=== PATIENT | female | born 1995 | race Caucasian/White ===

== ENCOUNTER 2023-04-07 09:07 | Outpatient (AMB) | payer BC, SELFPAY ==
--- NOTE | 2023-04-07 10:02 | AM.OFFWIN_ITS ---
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 Reports there was not a significant amount of blood. Open to air at this time. [facility] Social History Patient Tobacco Use Status: Never used Tobacco Patient : No Review of Systems Const All systems reviewed & are unremarkable except as noted in HPI and below Physical Exam Vital Signs: Last Vital Signs Temp 97.4 F 04/07/23 10:05 Pulse 88 04/07/23 10:05 BP 126/60 04/07/23 10:05 Pulse Ox 100 04/07/23 10:05 Oxygen Delivery Method Room Air 04/07/23 10:05 BMI result Body Mass Index 26.1 Const General: cooperative and no acute distress Resp Effort & Inspection: normal respiratory effort Skin Other: Approx 2cm straight laceration on lateral palmar aspect of left hand. It is well-approximated and there is no active bleeding. There is some black ink surrounding site. Office Procedures Laceration Repair Laceration repair performed by: Mattie Workman Explained risks and benefits to parent: Yes Informed consent given: Yes Sedation: No Irrigation: saline (approx 40ml irrigation) Wound exploration: none Deep closure: No Technique: steri-strips applied Topical treatment: dry Tetanus toxoid ordered: No Patient tolerated procedure: well Com[place]: [place] [id number] Repair <2.5cm Procedure code (CPT) selection complete Assessment & Plan Assessment & Plan (1) Laceration of left hand: Code(s): S61.412A - Laceration without foreign body of left hand, initial encounter Qualifiers: Encounter type: initial encounter Foreign body presence: without foreign body Qualified Code(s): S61.412A - Laceration without foreign body of left hand, initial encounter Plan: The laceration was irrigated with NS via syringe and the ink surrounding lac was removed with gauze once moistened. Area was dried and steri-strips were applied, and hand was wrapped with gauze wrap. We discussed maintenance of steri-strips and also indications of infection including increasing warmth, redness, drainage, pain at laceration site. If these occur, she should return to the clinic for further evaluation. She verbalizes understanding and agrees to plan. Advised Tylenol/Motrin as needed for pain/discomfort. Coding Level of Care Code Est Pt Level 3 (73360) Diagnoses Laceration of left hand without foreign body, initial encounter S61.412A Encounter type: initial encounter Foreign body presence: without foreign body
[2023-04-07 10:05] VITALS: BP 126/60; PULSE 88; TEMP 36.3; O2SAT 100; BMI 26.1
== END 2023-04-07 11:03 | disposition home or self-care (01) ==
PROVIDERS: PCP Internal Medicine; Visit Provider Nurse Practitioner Family
DX: S61.412A Laceration without foreign body of left hand, initial encounter (principal)
CPT/HCPCS: 99213

== ENCOUNTER 2023-08-10 09:10 | Emergency (ER) | payer BC, SELFPAY ==
--- NOTE | ~2023-08-10 | XR_ITS ---
EXAMINATION: XR CHEST CLINICAL INFORMATION: Chest pain COMPARISON: None available. TECHNIQUE: 2 views of the chest were obtained. FINDINGS: No significant abnormality is noted involving the heart, lungs, mediastinum, bony thorax or soft tissues. XR/XR chest 2V IMPRESSION: Unremarkable examination.
--- NOTE | 2023-08-10 09:15 | ECG_ITS ---
Test Reason : chest pain Blood Pressure : / mmHG Vent. Rate : 073 BPM Atrial Rate : 073 BPM P-R Int : 196 ms QRS Dur : 086 ms QT Int : 390 ms P-R-T Axes : 071 014 002 degrees QTc Int : 429 ms Normal sinus rhythm with sinus arrhythmia Nonspecific ST and T wave abnormality Abnormal ECG No previous ECGs available Referred By: Generic ED Physician Electronically Signed By:Gene Espinoza
[2023-08-10 09:32] VITALS: BP 123/73; PULSE 65; RESP 17; TEMP 36.6; O2SAT 99; BMI 25.8
[2023-08-10 10:21] VITALS: BP 130/83; PULSE 65; RESP 14; TEMP 36.4; O2SAT 100
--- OUTSIDE RECORDS SUMMARY | 2023-08-10 10:29 | XMS_ITS | Continuity of Care Document ---
Author Organization [facility] Address [address] [facility], [address] Floor, [address] [place] [address]- Care Team Providers Care Equal Opportunity Officer Name Role Phone Chantal Snyder MD Primary Care Physician [phone] Encounter [facility] [place] Date(s): 03/23/20 - 04/22/20 [facility] [address], [address] [place] [id number] Attending Physician: Teresa Woodward Admitting Physician: AdmtrTeresa Referring Physician: Admtr, Ar8 Allergies, Adverse Reactions, Alerts Substance Reaction Severity Status ibuprofen Active aspirin Active Immunizations Given and Recorded Vaccine Date Status Refusal Reason Human Papillomavirus Vaccine 07/23/12 Given Human Papillomavirus Vaccine 1 10/05/06 Given Human Papillomavirus Vaccine 06/06/06 Given Human Papillomavirus Vaccine 04/07/06 Given Meningococcal Conjugate Vaccine 07/23/12 Given Meningococcal Poly Vacc (oldterm) 09/20/07 Given tetanus-diphtheria toxoids (Td) 2 04/07/06 Given Measles/Mumps/Rubella Virus Vaccine 3 02/28/98 Giv en Measles/Mumps/Rubella Virus Vaccine 4 03/30/95 Giv en Poliovirus Vaccine, Inactivated 5 02/28/98 Given Poliovirus Vaccine, Inactivated 6 01/28/95 Given Poliovirus Vaccine, Inactivated 7 94 Given Poliovirus Vaccine, Inactivated 8 94 Given Diphth/Pertussis, Whl Cell/Tet(oldterm) 9 02/28/98 Given Diphth/Pertussis, Whl Cell/Tet(oldterm) 10 10/28/96 Given Diphth/Pertussis, Whl Cell/Tet(oldterm) 11 01/28/95 Given Diphth/Pertussis, Whl Cell/Tet(oldterm) 12 94 Given Diphth/Pertussis, Whl Cell/Tet(oldterm) 13 94 Given Haemophilus B Conj Vaccine (oldterm) 14 10/28/96 G iven Haemophilus B Conj Vaccine (oldterm) 15 01/28/95 G iven Haemophilus B Conj Vaccine (oldterm) 16 94 G iven Haemophilus B Conj Vaccine (oldterm) 17 94 G iven Hepatitis B Vaccine (old term) 94 Given Hepatitis B Vaccine (old term) 94 Given Hepatitis B Vaccine (old term) 94 Given 1Result Comment: error 2Admin Note: TD 3Admin Note: MMR. hx varicella age 4 4Admin Note: MMR 5Admin Note: IPV/OPV 6Admin Note: IPV/OPV 7Admin Note: IPV/OPV 8Admin Note: IPV/OPV 9Admin Note: DPT 10Admin Note: DPT 11Admin Note: DPT 12Admin Note: DPT 13Admin Note: DPT 14Admin Note: HIB 15Admin Note: HIB 16Admin Note: HIB 17Admin Note: HIB Medications Multivitamins By Mouth, Daily, 0 Refills, Maintenance, 01/25/16 9:03:19 Start Date: 01/25/16 Status: Ordered Problem List Condition Effective Dates Status Health Status Inform ant Healthy adolescent(Confirmed) Active Social History Social History Type Response Smoking Status Never smoker; Tobacc o user in household: No entered on: 01/25/16 Sex Female
--- OUTSIDE RECORDS SUMMARY | 2023-08-10 10:29 | XMS_ITS | Continuity of Care Document ---
Author Organization [facility] Address [address] [place] [address]- Care Team Providers Care Corporate Quality Engineer Name Role Phone Chantal Snyder MD Primary Care Physician Encounter [facility] [place] [place] Date(s): 11/01/19 - 12/01/19 [facility] [address] [place] [id number]- [facility] Allergies, Adverse Reactions, Alerts Substance Reaction Severity [...] iven Haemophilus B Conj Vaccine (oldterm) 15 10/28/95 G iven Haemophilus B Conj Vaccine (oldterm) [...]
--- OUTSIDE RECORDS SUMMARY | 2023-08-10 10:29 | XMS_ITS | Continuity of Care Document ---
Author Organization [facility] Address [address] [facility], [address] Floor, [address] [place] [phone]- Care Team Providers Care Legal Support Specialist Name Role Phone Chantal Snyder MD Primary Care Physician [phone] Encounter [facility] [place] Date(s): 03/09/20 - 04/08/20 [facility] [address], [address], [address] [place] [id number] Allergies, Adverse Reactions, Alerts Substance Reaction Severity [...] Given Haemophilus B Conj Vaccine (oldterm) 14 7/28/97 G iven Haemophilus B Conj Vaccine (oldterm) [...]
--- OUTSIDE RECORDS SUMMARY | 2023-08-10 10:29 | XMS_ITS | Continuity of Care Document ---
Author Organization [facility] Address [address] [place] [address]- Care Team Providers Care Building Drafting Officer Name Role Phone Chantal Snyder MD Primary Care Physician Encounter [facility] Date(s): 12/12/19 - 01/11/20 [facility] [address] [place] [id number]- [facility] Allergies, Adverse Reactions, Alerts [...]
--- OUTSIDE RECORDS SUMMARY | 2023-08-10 10:29 | XMS_ITS | Continuity of Care Document ---
Author Organization [facility] ter Address [address] [place] [address]- Care Team Providers Care Distribution Associate Name Role Phone Chantal Snyder MD Primary Care Physician [phone] Encounter [facility] Date(s): 03/30/21 - 03/30/[address] [address]- Discharge Disposition: A-D/C Walkout Attending Physician: Not on Staff, Attending MD Admitting Physician: Not on Staff, Admitting MD Referring Physician: Not on Staff, Referring MD Allergies, Adverse Reactions, Alerts Substance Reaction Severity [...] 16Admin Note: HIB 17Admin Note: HIB Medications acetaminophen 325 mg oral tablet 650 mg, By Mouth, Every 4 hours, PRN, (1-3), may give 325mg per patient preference and re-dose [id number] within 4 hours, if needed. Patient should only receive a total of 650mg of Acetaminophen every 4 hours., Refills 0, Maintenance, Pain , Mild, 0... Start Date: 05/17/20 Status: Ordered Docusate Sodium Capsule 100 mg, 1, capsule, By Mouth, 2 times a day, Refills 0, Maintenance, 05/17/20 8:13:00 EST, Partial fill upon patient request if the prescription is for a schedule II opioid drug. Start Date: 05/17/20 Status: Ordered Multivitamins By Mouth, Daily, 0 Refills, Maintenance, 01/25/16 9:03:19 Start Date: 01/25/16 Status: Ordered Problem List Condition Effective Dates Status Health Status Inform ant Healthy adolescent(Confirmed) Active Migraines(Confirmed) Active Results Radiology Reports * Exam Date Time Procedure Performing Provider Status 03/30/21 7:51 AM Chest 2 Views Frontal and Lat Amy Randolph; Auth (Verified) Notes: (Chest 2 Views Frontal and Lat) Reason For Exam: Chest Pain;Other: RESULT: Chest 2 Views Frontal and Lat Chest 2 Views Frontal and Lat Hx of Present Illness: Nausea, lightheadedness (not vertigo), since [place]. Also reports exertional, non-radiating, intermittent CP.; Reason: Other:; Chest Pain; Clinical Question(s): Other: COMPARISON: 02/28/2017 FINDINGS: LINES AND TUBES: None. LUNGS AND PLEURA: Lungs are grossly clear without focal atelectasis or consolidation. No pulmonary vascular congestion, pleural effusion or pneumothorax is identified. HEART, MEDIASTINUM AND CHEMO: Heart is normal in size. Normal upper mediastinal and hilar contour. BONES AND SOFT TISSUES: Normal. IMPRESSION: Normal chest. WSN: [id number] Ordering Physician: Caesar Engle Dictated By: Lloyd Starkey MD Dictated Date/Time: 03/30/21 7:59 am Reviewed By: Lloyd Starkey MD Signed By: Lloyd Starkey MD Signed Date/Time: 03/30/21 7:59 am Transcribed By: MICHELLE Transcribed Date/Time: 03/30/21 7:55 am Vital Signs Most recent to oldest [Reference Range]: 1 2 3 Oxygen Saturation [94-100 %] 100 % (03/30/21 12:43 PM) 100 % (03/30/21 12:30 PM) 100 % (03/30/21 9:29 AM) Pulse Rate [55-90 bpm] 60 bpm (03/30/21 12:43 PM) 60 bpm (03/30/21 12:30 PM) 74 bpm (03/30/21 9:29 AM) Blood Pressure [90-138/55-84 mm Hg] 122/70mm Hg (03/30/21 12:43 PM) 122/70mm Hg (03/30/21 12:30 PM) 111/71mm Hg (03/30/21 9:29 AM) Respiratory Rate [16-30 br/min] 16 br/min (03/30/21 12:43 PM) 16 br/min (03/30/21 12:30 PM) 16 br/min (03/30/21 9:29 AM) Temperature [96.8-100.4 DegF] 98.1 DegF (03/30/21 12:43 PM) 98.1 DegF (03/30/21 12:30 PM) 98.3 DegF (03/30/21 9:29 AM) Mode of Delivery (Oxygen) Room air (03/30/21 12:43 PM) Room air (03/30/21 12:30 PM) Room air (03/30/21 9:29 AM) Blood pressure sites Arm, right (03/30/21 12:43 PM) Arm, right (03/30/21 12:30 PM) Arm, right (03/30/21 9:29 AM) Temperature Route Oral (03/30/21 12:43 PM) Oral (03/30/21 12:30 PM) Oral (03/30/21 9:29 AM) Social History Social History Type Response Smoking Status Never smoker; Tobacc o user in household: No entered on: 01/25/16 Sex Female
--- OUTSIDE RECORDS SUMMARY | 2023-08-10 10:29 | XMS_ITS | Continuity of Care Document ---
Author Organization [facility] ter Address [address] [place] [address]- Care Team Providers Care Mill Operator Helper Name Role Phone Chantal Snyder MD Primary Care Physician Encounter [facility] Date(s): 05/14/20 - 06/13/[address] [address] Attending Physician: Stevo Fowler MD Referring Physician: Kellie Luevano CNM Allergies, Adverse Reactions, Alerts Substance Reaction Severity [...] give 325mg per patient preference and re-dose [id number] within 4 hours, if needed. Patient should [...] Inform ant Healthy adolescent(Confirmed) Active Migraines(Confirmed) Active Social History Social History Type Response Smoking Status Never smoker; Tobacc o user in household: No entered on: 01/25/16 Sex Female
--- OUTSIDE RECORDS SUMMARY | 2023-08-10 10:29 | XMS_ITS | Continuity of Care Document ---
Author Organization [facility] Address [address] [facility], [address] Floor, [address] [place] [phone]- Care Team Providers Care Maintenance Services Dispatcher Name Role Phone Chantal Snyder MD Primary Care Physician [phone] Encounter [facility] [place] Date(s): 03/04/20 - 04/03/20 [facility] [address], [address], [address] [place] [id number] Allergies, Adverse Reactions, Alerts Substance Reaction [...]
--- OUTSIDE RECORDS SUMMARY | 2023-08-10 10:29 | XMS_ITS | Continuity of Care Document ---
Author Organization [facility] ter Address [address] [place] [address]- Care Team Providers Care Skid Road Worker Name Role Phone Chantal Snyder MD Primary Care Physician Encounter [facility] [place] Date(s): 11/08/19 - 11/08/[address] [address] [facility] Discharge Disposition: A-D/C Home Attending Physician: Chun PARKER, Angelic Maldonado Admitting Physician: Angelic Mccollmu MD Referring Physician: Not on Staff, Referring [...] Health Status Inform ant Healthy adolescent(Confirmed) Active Vital Signs Most recent to oldest [Reference Range]: 1 2 3 Oxygen Saturation [94-100 %] 98 % (11/08/19 7:29 PM) 100 % (11/08/19 5:25 PM) 100 % (11/08/19 3:32 PM) Pulse Rate [55-90 bpm] 74 bpm (11/08/19 7:29 PM) 111 bpm *H* (11/08/19 5:25 PM) 77 bpm (11/08/19 3:32 PM) Blood Pressure [90-138/55-84 mm Hg] 124/79mm Hg (11/08/19 7:29 PM) 114/68mm Hg (11/08/19 5:25 PM) 124/75mm Hg (11/08/19 3:32 PM) Respiratory Rate [16-30 br/min] 18 br/min (11/08/19 7:29 PM) 18 br/min (11/08/19 5:25 PM) 18 br/min (11/08/19 3:32 PM) Temperature [96.8-100.4 DegF] 98.8 DegF (11/08/19 7:29 PM) 98.8 DegF (11/08/19 3:32 PM) Mode of Delivery (Oxygen) Room air (11/08/19 7:29 PM) Room air (11/08/19 5:25 PM) Room air (11/08/19 3:32 PM) Blood pressure sites Arm, right (11/08/19 7:29 PM) Arm, right (11/08/19 5:25 PM) Arm, right (11/08/19 3:32 PM) Temperature Route Oral (11/08/19 7:29 PM) Oral (11/08/19 3:32 PM) Social History Social History Type Response Smoking Status Never smoker; Tobacc o user in household: No entered on: 01/25/16 Sex Female
--- OUTSIDE RECORDS SUMMARY | 2023-08-10 10:29 | XMS_ITS | Continuity of Care Document ---
Author Organization [facility] ter Address [address] [place] [address]- Care Team Providers Care Concession Worker Name Role Phone Chantal Snyder MD Primary Care Physician Encounter [facility] Date(s): 05/15/20 - 05/17/[address] [id number] Discharge Disposition: A-D/C Home Attending Physician: Stevo Fowler MD Admitting Physician: Stevo Fowler MD Referring Physician: Stevo Fowler MD Allergies, Adverse Reactions, Alerts Substance Reaction [...] give 325mg per patient preference and re-dose [id number] within 4 hours, if needed. Patient should only receive a total of 650mg of Acetaminophen every 4 hours., Refills 0, Maintenance, Pain , Mild, 0... Start Date: 05/17/20 Status: Ordered Acetaminophen Tablet 650 mg, Tablet, By Mouth, Every 4 hours, PRN for Pain , Mild, (1-3), may give 325mg per patient preference and re-dose with 325mg within 4 hours, if needed. Patient should only receive a total of 650mg of Acetaminophen every 4 hours., Routine, 05/15... Start Date: 05/15/20 Stop Date: 05/17/20 Status: Discontinued Docusate Sodium Capsule 100 mg, 1, capsule, [...] Inform ant Healthy adolescent(Confirmed) Active Migraines(Confirmed) Active Procedures Procedure Date Related Diagnosis Body Site Status Appendectomy Completed Hawi tooth Completed Vital Signs Most recent to oldest [Reference Range]: 1 2 3 Height 168 cm (05/17/20 10:27 AM) 168 cm (05/17/20 12:19 AM) 168 cm (05/16/20 2:51 PM) Weight 83.6 kg (05/15/20 8:49 PM) 83.6 kg (05/15/20 6:54 PM) Oxygen Saturation [94-100 %] 96 % (05/17/20 12:19 AM) 95 % (05/16/20 5:37 AM) 100 % (05/16/20 1:30 AM) Pulse Rate [55-90 bpm] 78 bpm (05/17/20 10:27 AM) 76 bpm (05/17/20 12:19 AM) 80 bpm (05/16/20 2:51 PM) Body Mass Index [18.5-24.99] 29.62 *H* (05/15/20 8:49 PM) Blood Pressure [90-138/55-84 mm Hg] 119/76mm Hg (05/17/20 10:27 AM) 125/79mm Hg (05/17/20 12:19 AM) 123/77mm Hg (05/16/20 2:51 PM) Respiratory Rate [16-30 br/min] 17 br/min (05/17/20 10:27 AM) 18 br/min (05/17/20 1:39 AM) 18 br/min (05/17/20 12:19 AM) Temperature [96.8-100.4 DegF] 98.1 DegF (05/17/20 10:27 AM) 98.3 DegF (05/17/20 12:19 AM) 98.5 DegF (05/16/20 2:51 PM) Mode of Delivery (Oxygen) Room air (05/17/20 12:19 AM) Room air (05/16/20 5:37 AM) Room air (05/16/20 1:30 AM) Blood pressure sites Arm, left (05/17/20 10:27 AM) Arm, right (05/16/20 2:51 PM) Arm, right (05/16/20 8:58 AM) Temperature Route Oral (05/17/20 10:27 AM) Oral (05/17/20 12:19 AM) Oral (05/16/20 2:51 PM) Dry Weight 83.6 kg (05/15/20 8:49 PM) 83.6 kg (05/15/20 6:54 PM) Weight Obtained Via Standing scale (05/15/20 6:54 PM) Dry Weight Obtained Via Standing scale (05/15/20 6:54 PM) Social History Social History Type Response Smoking Status Never smoker; Tobacc o user in household: No entered on: 01/25/16 Sex Female
--- NOTE | 2023-08-10 10:40 | PC.NURSE ---
Pt presents to ED from home, reports chest pain started yesterday that started while at work. Describes as pressure in center of chest radiating to left arm, 5/10 at this time. Pt reports some nausea at this time. Denies any vomiting, diarrhea, fevers, cough, SOB. Denies this ever happening before. Alert and oriented, breathing even and unlabored, skin warm and dry. Pt placed on administration clerk, NSR. VSS.
--- NOTE | 2023-08-10 10:52 | ED.CHESTPAIN ---
HPI - Chest Pain General Chief Complaint: Chest Pain Stated Complaint: Chest pain traveling to shoulders Time Seen by Provider: 08/10/23 10:28 Source: patient Mode of arrival: ambulatory Limitations: no limitations History of Present Illness HPI narrative: Patient is a 28-year-old female with no past medical history presenting to the emergency department with complaint of chest pain since waking yesterday. States that chest pain has been constant since onset, waxing and waning in intensity. States pain worsened when she became ?animated? at work yesterday. States pain has begun to radiate to left arm and to shoulders. Reports that father has history of CHF and when she told him her symptoms he advised her to come to the emergency department. Also complains of feeling generalized fatigue, headaches, lightheadedness this week. Denies any abdominal pain, nausea, vomiting, diarrhea, constipation. Denies cough, fevers. MD complaint: chest pain Onset (ago): day(s) Timing of current episode: constant Onset: awoke with symptoms Pain location: substernal Pain radiation: left arm Severity: moderate Quality: aching Exacerbating factors: stress Treatment prior to arrival: none Related Data Home Medications ?Medication ?Instructions ?Recorded ?Confirmed No Known Home Meds 04/07/23 04/07/23 Allergies Allergy/AdvReac Type Severity Reaction Status Date / Time aspirin Allergy Unknown Unknown Verified 08/10/23 09:34 ibuprofen Allergy Unknown Unknown Verified 08/10/23 09:34 NSAIDS (Non-Steroidal Allergy Swelling Verified 08/10/23 09:34 Anti-Inflamma Review of Systems Review of Systems: As per HPI. Yes all other systems are reviewed and are negative Constitutional: Constitutional: Reports as per HPI [facility] Social History Social History Patient Tobacco Use Status: Never used Tobacco Smoked in Last 30 Days: No Use of substances other than those prescribed or required for medical reasons: No Advance Directives: No Advance Directives Information Provided: Yes Physical Exam Vital Signs: Vital Signs: Last Vital Signs Temp 98.4 F 08/10/23 14:22 Pulse 60 08/10/23 14:22 Resp 16 08/10/23 14:22 BP 116/71 08/10/23 14:22 Pulse Ox 99 08/10/23 14:22 O2 Del Method Room Air 08/10/23 14:22 BMI result Body Mass Index 25.8 Vital signs have been reviewed and appear to be correct. Blood pressure normal. Heart rate normal. Respiratory rate normal. Temperature normal. Oxygen saturation normal. Const: General: cooperative, healthy appearing and no acute distress Orientation/consciousness: oriented to person, oriented to place, oriented to time and patient oriented x3 Limitations: no limitations HEENT: Head: Yes normocephalic and Yes atraumatic Ears: external ears normal General nose exam: Normal external nose present Face and sinus: Yes face symmetric Mouth: oropharynx normal and moist mucous membranes Throat: Yes uvula midline Eyes: Pupils: Equal, round and reactive pupils present Neck: Neck: Yes normal visual inspection and Yes supple Chest: Chest palpation & inspection: normal inspection of the chest and normal palpation of entire chest wall Resp: Effort & Inspection: normal respiratory effort and able to speak in complete sentences Auscultation: clear to auscultation bilaterally Cardio: Rate: regular rate Rhythm: regular rhythm Heart sounds: S1 normal heart sound present and S2 normal heart sound present GI: Palpation (GI): Soft to palpation and nontender Auscultation: normoactive bowel sounds : General: Yes no CVA tenderness Back/Spine/Pelvis: Back: no CVA tenderness Skin: General skin exam: elasticity normal and turgor normal Neuro: General: oriented to person, oriented to place, oriented to time, patient oriented x3, moves all extremities, no focal motor deficits and CN's II-XI intact bilaterally Cranial nerves: Yes Equal, round and reactive pupils present Cognition (Neuro): normal cognition Extrem: General: Yes full ROM, Yes no pedal edema and Yes no calf tenderness Psych: Mental Status: mental status grossly normal Affect: normal affect Thought process: Normal thought process present Medical Decision Making Medical Decision Making MDM Narrative: Patient is a 28-year-old female with no past medical history presenting to the emergency department with complaint of chest pain since waking yesterday. On exam patient is awake, A+Ox3, VS WNL, afebrile, normal neurological exam without focal deficits, physical exam findings as above. Given reported symptoms and physical exam findings, initial differential includes viral illness, covid, flu, rsv, anemia, electrolyte abnormality, dehydration, . Less likely ACS but will obtain troponin. Unlikely pneumonia, pneumothorax. Labs unremarkable, negative troponin, no anemia, no electrolyte abnormalities, negative d-dimer, negative HCG. Viral swabs negative. EKG shows normal sinus rhythm with sinus arrhythmia. X-ray notable for no acute abnormalities. My interpretation is in agreement with the radiologist's interpretation. Results discussed with patient and all questions answered. Instructed patient to follow-up with her primary care provider. Return precautions discussed at bedside. Patient verbalized understanding of and agreement with plan. Differential Diagnosis Differential Diagnoses: The differential diagnosis associated with the presentation includes As per [facility] Admission/Observation Consideration of admission/observation: Escalation of care including admission/observation considered Patient would have been admitted to the hospital had their work up had any findings where hospital admission was appropriate and their clinical presentation warranted hospital admission. Lab Data [facility] Lab Attestation statement: I reviewed the patient's lab results. as per [facility] 08/10/23 11:17 08/10/23 11:17 Labs: Lab Results 08/10/23 08/10/23 Range/Units 11:16 11:17 WBC 4.8 (4.8-10.8) X10*3/uL RBC 4.63 (4.20-5.50) X10*6/uL Hgb 13.9 (12.0-16.0) g/dl Hct 41.8 (37.0-47.0) % MCV 90.3 (80.0-98.0) fL MCH 30.0 (27.0-33.0) pg MCHC 33.3 (31.0-35.0) g/dl RDW 12.2 (11.0-16.0) % Plt Count 206 (160-400) X10*3/uL MPV 11.5 (9.4-12.3) fL Immature Gran % (Auto) 0.2 (0.0-0.4) % Neut % (Auto) 55.3 (45-73) % Lymph % (Auto) 37.2 (20-40) % [place] % (Auto) 5.2 (2-11) % Eos % (Auto) 1.7 (0-4) % Baso % (Auto) 0.4 (0-2) % Lymph # (Auto) 1.8 (1.2-4.9) X10*3/uL [place] # (Auto) 0.3 (0.1-1.2) X10*3/uL Eos # (Auto) 0.1 (0.0-0.4) X10*3/uL Baso # (Auto) 0.0 (0.0-0.2) X10*3/uL Abs Immat Gran (auto) 0.01 (0.00-0.03) X10*3/uL Absolute Neuts (auto) 2.7 (2.0-8.3) x10*3/uL Absolute Nucleated RBC 0.000 (0.0-0.012) X10*3/uL Nucleated RBC % (auto) 0.0 (0.0-0.2) /100WBC PT 12.1 (11.1-13.3) SEC INR 1.0 (0.9-1.1) D-Dimer High Sensitivty < 150 NG/ML Sodium 142 (135-145) mmol/L Potassium 3.6 (3.3-5.1) mmol/L Chloride 110 H (96-108) mmol/L Carbon Dioxide 22 (22-29) mmol/L Anion Gap 14 (12-20) BUN 10 (9-16) mg/dL Creatinine 0.69 (0.5-1.4) mg/dL Estim Creat Clear Calc 122.7 Estimated GFR > 60 Random Glucose 89 (60-115) mg/dL Calcium 9.8 (8.4-10.2) mg/dL Troponin I High Sens < 2.7 (<3.5-17.0) ng/L Beta HCG, Quant < 2 mIU/mL Influenza Type A (PCR) NEGATIVE (Negative) Influenza Type B (PCR) NEGATIVE (Negative) RSV RNA Qual (PCR) NEGATIVE (Negative) SARS-CoV-2 RNA (RT-PCR) NEGATIVE (Negative) Independent Interpretation I performed an independent interpretation of an: EKG (normal sinus rhythm with sinus arrhythmia, rate 73bpm, normal NE interval and QTc) and Plain X-Ray Interpretation: CXR is without evidence of cardiomegaly, pneumonia, pneumothorax Radiology Impression Discussion of test interpretation with radiology: I have reviewed the radiologist's reading. Radiologist Impression: XR/XR chest 2V IMPRESSION: Unremarkable examination. External Record Review External record reviewed: Inpatient record, Office record and Outpatient record Discharge Plan Discharge Clinical Impression: Atypical chest pain Patient Disposition: Home, Self-Care Instructions: Chest Pain (DC), Noncardiac Chest Pain (ED), Chest Wall Pain (ED) Additional Instructions: You were evaluated in the emergency department today for chest pain. Your evaluation has shown no signs of medical conditions requiring emergent intervention at this time, however we recommend that you follow-up with your primary care physician for further testing as an outpatient if your symptoms persist. Return to the emergency department if you experience worsening or uncontrolled chest pain, shortness of breath, lightheadedness, feeling faint, loss of consciousness, nausea, vomiting, or any other concerning symptoms. Prescriptions: No Action No Known Home Meds Stand Alone Forms: Work/School Release Print Language: Ugandan
[2023-08-10 11:23] LABS: MANUAL DIFF FLAG NO
[2023-08-10 11:25] LABS: Basophils Percent Auto 0.4 % (0-2); Eosinophils Absolute Auto 0.1 X10*3/uL (0.0-0.4); Eosinophils Percent Auto 1.7 % (0-4); Hematocrit 41.8 % (37.0-47.0); Hemoglobin 13.9 g/dl (12.0-16.0); Imm Gran Abs Auto 0.01 X10*3/uL (0.00-0.03); Imm Gran Pct Auto 0.2 % (0.0-0.4); Lymphocytes Absolute Auto 1.8 X10*3/uL (1.2-4.9); Lymphocytes Percent Auto 37.2 % (20-40); Mean Corpuscular HGB Conc 33.3 g/dl (31.0-35.0); Mean Corpuscular Volume 90.3 fL (80.0-98.0); Mean Platelet Volume 11.5 fL (9.4-12.3); Monocytes Absolute Auto 0.3 X10*3/uL (0.1-1.2); Monocytes Percent Auto 5.2 % (2-11); Neutrophils Absolute Auto 2.7 x10*3/uL (2.0-8.3); Neutrophils Percent Auto 55.3 % (45-73); Platelet Count 206 X10*3/uL (160-400); Red Blood Count 4.63 X10*6/uL (4.20-5.50); Red Cell Distribution Width 12.2 % (11.0-16.0); White Blood Count 4.8 X10*3/uL (4.8-10.8)
[2023-08-10 11:37] LABS: Prothrombin Time 12.1 SEC (11.1-13.3)
[2023-08-10 11:42] LABS: D Dimer High Sensitivity < 150 NG/ML
[2023-08-10 11:43] LABS: Anion Gap 14 (12-20); Blood Urea Nitrogen 10 mg/dL (9-16); Calcium 9.8 mg/dL (8.4-10.2); Carbon Dioxide 22 mmol/L (22-29); Chloride 110 mmol/L (96-108); Creatinine Clr Calc Pharmacy 122.7; Estimated Glomerular Filt Rate > 60; Glucose Random 89 mg/dL (60-115); Potassium 3.6 mmol/L (3.3-5.1); Sodium 142 mmol/L (135-145)
[2023-08-10 11:47] LABS: HCG Quantitative < 2 mIU/mL; Troponin-I High Sensitivity < 2.7 ng/L (<3.5-17.0)
[2023-08-10 12:47] LABS: Influenza A PCR NEGATIVE (Negative); Influenza B PCR NEGATIVE (Negative); Resp Syncy Virus RNA Qual PCR NEGATIVE (Negative); SARS COV2 PCR INHOUSE NEGATIVE (Negative)
[2023-08-10 14:22] VITALS: BP 116/71; PULSE 60; RESP 16; TEMP 36.9; O2SAT 99
[2023-08-10 14:54] VITALS: BP 116/71; PULSE 60; RESP 16; TEMP 36.9; O2SAT 99
== END 2023-08-10 14:55 | disposition home or self-care (01) ==
PROVIDERS: Registered Nurse Emergency; Emergency Provider Emergency Medicine; PCP Internal Medicine
DX: R07.89 Other chest pain (principal); M79.602 Pain in left arm; R51.9 Headache, unspecified; R42 Dizziness and giddiness; R10.2 Pelvic and perineal pain; Z03.818 Encounter for observation for suspected exposure to other biological agents ruled out; Z79.899 Other long term (current) drug therapy
CPT/HCPCS: 0241U; 36415; 71046; 80048; 84484; 84702; 85025; 85379; 85610; 93005; 99283; 99285

== ENCOUNTER → 2023-08-10 09:15 | Outpatient (BNV) | payer BC, SELFPAY | PROVIDERS: Emergency Provider Emergency Medicine; PCP Internal Medicine; Visit Provider Internal Medicine Cardiovascular Disease | DX: R07.9 Chest pain, unspecified (principal) | CPT/HCPCS: 93010 ==

== ENCOUNTER 2023-10-24 05:39 | Emergency (ER) | payer BC, SELFPAY ==
[2023-10-24 05:41] VITALS: BP 123/82; PULSE 66; RESP 16; TEMP 36.6; O2SAT 99; BMI 25.8
[2023-10-24 05:57] LABS: Basophils Percent Auto 0.2 % (0-2); Eosinophils Absolute Auto 0.9 X10*3/uL (0.0-0.4); Eosinophils Percent Auto 9.6 % (0-4); Hematocrit 40.4 % (37.0-47.0); Hemoglobin 13.8 g/dl (12.0-16.0); Imm Gran Abs Auto 0.03 X10*3/uL (0.00-0.03); Imm Gran Pct Auto 0.3 % (0.0-0.4); Lymphocytes Absolute Auto 3.1 X10*3/uL (1.2-4.9); Lymphocytes Percent Auto 32.9 % (20-40); MANUAL DIFF FLAG NO; Mean Corpuscular HGB Conc 34.2 g/dl (31.0-35.0); Mean Corpuscular Hemoglobin 30.8 pg (27.0-33.0); Mean Corpuscular Volume 90.2 fL (80.0-98.0); Mean Platelet Volume 11.2 fL (9.4-12.3); Monocytes Absolute Auto 0.6 X10*3/uL (0.1-1.2); Monocytes Percent Auto 6.5 % (2-11); Neutrophils Absolute Auto 4.8 x10*3/uL (2.0-8.3); Neutrophils Percent Auto 50.5 % (45-73); Platelet Count 223 X10*3/uL (160-400); Red Blood Count 4.48 X10*6/uL (4.20-5.50); Red Cell Distribution Width 11.9 % (11.0-16.0); White Blood Count 9.5 X10*3/uL (4.8-10.8)
[2023-10-24 06:17] LABS: Alanine Aminotransferase 12 U/L (0-31); Albumin Level 4.6 g/dL (3.5-5.0); Alkaline Phosphatase 62 U/L (39-117); Anion Gap 15 (12-20); Aspartate Amino Transferase 12 U/L (5-31); Bilirubin Total 1.3 mg/dL (0.0-1.0); Blood Urea Nitrogen 10 mg/dL (9-16); Calcium 9.7 mg/dL (8.4-10.2); Carbon Dioxide 18 mmol/L (22-29); Chloride 108 mmol/L (96-108); Creatinine Clr Calc Pharmacy 114.4; Estimated Glomerular Filt Rate > 60; Glucose Random 106 mg/dL (60-115); Lipase 42 U/L (8-78); Potassium 3.8 mmol/L (3.3-5.1); Sodium 137 mmol/L (135-145); Total Protein 7.7 g/dL (6.5-8.0)
[2023-10-24 06:19] LABS: HCG Quantitative < 2 mIU/mL
--- NOTE | 2023-10-24 06:45 | ED.GENADULT ---
HPI - General Adult General Chief complaint: Abdominal Pain Stated complaint: Abd pain Time Seen by Provider: 10/24/23 06:41 Source: patient Mode of arrival: ambulatory Limitations: no limitations History of Present Illness ED Provider: Davina Yates PA-C HPI narrative: This is a 28 year old female with history of gastritis presenting with epigastric pain, nausea, and burping. She reports nausea without vomiting for the past couple of days, and upper abdominal pain x 1 week. Denies sick contacts, travel, recent antibiotic use, alcohol use, or NSAID use. She has tried pepto bismol with no relief of symptpms. Denies fevers, chills, chest pain, sob, headaches, visual changes. Related Data Previous Rx's ?Medication ?Instructions ?Recorded aluminum-mag hydroxide-simethicone 5 ml PO 5XD PRN dyspepsia #355 mL 10/24/23 200 mg-200 mg-20 mg/5 mL oral susp (Maalox Advanced) pantoprazole 40 mg tablet,delayed 40 mg PO DAILY 30 days #30 tabs 10/24/23 release (Protonix) Allergies Allergy/AdvReac Type Severity Reaction Status Date / Time aspirin Allergy Unknown Unknown Verified 10/24/23 05:44 ibuprofen Allergy Unknown Unknown Verified 10/24/23 05:44 NSAIDS (Non-Steroidal Allergy Swelling Verified 10/24/23 05:44 Anti-Inflamma Review of Systems Review of Systems: Yes all other systems are reviewed and are negative [facility] Past Medical History Attestation statement: The following information was validated with the patient. Source: old records reviewed and nursing notes reviewed Social History Social History Patient Tobacco Use Status: Never used Tobacco Smoked in Last 30 Days: No Use of substances other than those prescribed or required for medical reasons: No Advance Directives: No Advance Directives Information Provided: Yes Physical Exam ED Vital Signs: Vital Signs - 24 hr 10/24/23 05:41 10/24/23 08:26 Temperature 98 F 98.0 F Pulse Rate 66 57 Respiratory Rate 16 14 Blood Pressure 123/82 110/65 Pulse Oximetry 99 100 Oxygen Delivery Method Room Air Room Air BMI result Body Mass Index 25.8 vss Appearance: Alert.? Oriented X3.? No acute distress.? Head: Normocephalic, atraumatic, no step-offs or deformities Eyes: Pupils equal, round and reactive to light.? Neck: Normal inspection.? Neck supple.? CVS: Normal heart rate and rhythm.? Pulses normal.? Respiratory: No respiratory distress.? Breath sounds normal.? Abdomen: Soft. + mild ttp in epigastric region. Palpation worsens nausea. No peritoneal signs. Skin: Skin warm and dry.? Normal skin color.? Normal skin turgor.? Extremities: No lower extremity edema.? No calf ttp. 5/5 strength to bilateral upper and lower extremities Neuro: Oriented X 3.? No motor deficit.? No sensory deficit. CN 2-12 intact Course Reevaluation(s) Reevaluation #1: CBC unremarkable. Chemistry no acute findings needing intervention. Beta hCG negative. Total bilirubin elevated at baseline today 1.3 this is better than her baseline. UA without infection. Pain much improved after Maalox and Pepcid. Plan at this time is to discharge patient home with Pepcid, Maalox and GI follow-up. Patient tolerating p.o. agrees with this plan. Will call to schedule an appointment. Educated patient on diagnosis and treatment plan, answered all question, patient verbalizes understanding. At this time patient will be discharged home, advised to return with new or worsening symptoms. Educated on worrisome signs and symptoms and when to return. At this time I feel comfortable discharge home. Time: 09:07 Medications Administered Discontinued Medications Generic Name Dose Route Start Last Admin Trade Name Freq PRN Reason Stop Dose Admin Al Hydroxide/Mg Hydroxide 15 ml 10/24/23 07:01 10/24/23 07:23 Magnesium Hydrox/Alum Hydrox 30 Ml Oral.Susp PO 10/24/23 07:02 0.5 ml ONCE ONE Administration Famotidine 20 mg 10/24/23 07:55 10/24/23 08:16 Famotidine 20 Mg Tablet PO 10/24/23 07:56 20 mg ONCE ONE Administration Medical Decision Making Medical Decision Making MDM Narrative: 28 year old female with history of gastritis presenting with nausea, upper abdominal pain, and burping x 1 week. PE + ttp upper epigastric region. No peritoneal signs Hx and PE concerning for gastritis vs GERD vs gastroenteritis. Unlikely appendicitis, cholecystitis, pancreatitis, perforated gastric ulcer, peritonitis. Plan - labs, urine Differential Diagnosis Differential Diagnoses: The differential diagnosis associated with the presentation includes Hx and PE concerning for gastritis vs GERD vs gastroenteritis. Unlikely appendicitis, cholecystitis, pancreatitis, perforated gastric ulcer, peritonitis. Admission/Observation Consideration of admission/observation: Escalation of care including admission/observation considered Lab Data 10/24/23 05:51 10/24/23 05:51 Labs: Lab Results 10/24/23 10/24/23 Range/Units 05:51 08:29 WBC 9.5 (4.8-10.8) X10*3/uL RBC 4.48 (4.20-5.50) X10*6/uL Hgb 13.8 (12.0-16.0) g/dl Hct 40.4 (37.0-47.0) % MCV 90.2 (80.0-98.0) fL MCH 30.8 (27.0-33.0) pg MCHC 34.2 (31.0-35.0) g/dl RDW 11.9 (11.0-16.0) % Plt Count 223 (160-400) X10*3/uL MPV 11.2 (9.4-12.3) fL Immature Gran % (Auto) 0.3 (0.0-0.4) % Neut % (Auto) 50.5 (45-73) % Lymph % (Auto) 32.9 (20-40) % [place] % (Auto) 6.5 (2-11) % Eos % (Auto) 9.6 H (0-4) % Baso % (Auto) 0.2 (0-2) % Lymph # (Auto) 3.1 (1.2-4.9) X10*3/uL [place] # (Auto) 0.6 (0.1-1.2) X10*3/uL Eos # (Auto) 0.9 H (0.0-0.4) X10*3/uL Baso # (Auto) 0.0 (0.0-0.2) X10*3/uL Abs Immat Gran (auto) 0.03 (0.00-0.03) X10*3/uL Absolute Neuts (auto) 4.8 (2.0-8.3) x10*3/uL Absolute Nucleated RBC 0.000 (0.0-0.012) X10*3/uL Nucleated RBC % (auto) 0.0 (0.0-0.2) /100WBC Sodium 137 (135-145) mmol/L Potassium 3.8 (3.3-5.1) mmol/L Chloride 108 (96-108) mmol/L Carbon Dioxide 18 L (22-29) mmol/L Anion Gap 15 (12-20) BUN 10 (9-16) mg/dL Creatinine 0.74 (0.5-1.4) mg/dL Estim Creat Clear Calc 114.4 Estimated GFR > 60 Random Glucose 106 (60-115) mg/dL Calcium 9.7 (8.4-10.2) mg/dL Total Bilirubin 1.3 H (0.0-1.0) mg/dL AST 12 (5-31) U/L ALT 12 (0-31) U/L Alkaline Phosphatase 62 (39-117) U/L Total Protein 7.7 (6.5-8.0) g/dL Albumin 4.6 (3.5-5.0) g/dL Lipase 42 (8-78) U/L Beta HCG, Quant < 2 mIU/mL Urine Color Yellow Urine Appearance Cloudy Urine pH 5.0 (5.0-9.0) Ur Specific [place] 1.025 (1.005-1.025) Urine Protein Negative (Neg-Trace) mg/dL Urine Glucose (UA) Negative (Negative) mg/dL Urine Ketones Negative (Negative) mg/dL Urine Blood Negative (Negative) Urine Nitrite Negative (Negative) Ur Leukocyte Esterase Negative (Negative) Critical Care Time Critical Care Time Critical Care Time: No Discharge Plan Discharge Clinical Impression: Gastroesophageal reflux disease, Abdominal pain, epigastric Patient Disposition: Home, Self-Care Instructions: Diet for Stomach Ulcers and Gastritis (ED), Gastroesophageal Reflux Disease (ED), Abdominal Pain (ED) Additional Instructions: Take your medications as prescribed. If you were prescribed antibiotics today, it is important that you take your medication to their entirety, do not skip any doses, do not finish them early. Follow-up with your primary care provider this week. Return to the emergency department with new or worsening symptoms. Such as fevers, chills, chest pain, shortness of breath, nausea, vomiting, dizziness, headache, vision changes, lethargy In case of emergency call 911 Follow-up with GI Prescriptions: New alum-mag hydroxide-simeth [Maalox Advanced] 200-200-20 mg/5 mL suspension 5 ml PO 5XD PRN (Reason: dyspepsia) Qty: 355 0RF Rx Instructions: administer between meals and at bedtime pantoprazole [Protonix] 40 mg tablet,delayed release (DR/EC) 40 mg PO DAILY 30 Days Qty: 30 0RF Referrals: [facility]Provider Group] - 1 day Chantal Snyder MD [Primary Care Provider] - 2 days Stand Alone Forms: Work/School Release Print Language: Salvadorean
[2023-10-24] MEDS: Magnesium Hydrox/Alum Hydrox 30 ML ORAL.SUSP 15 ML PO (07:23)
[2023-10-24] MEDS: Famotidine 20 MG TABLET PO (08:16)
[2023-10-24 08:26] VITALS: BP 110/65; PULSE 57; RESP 14; TEMP 36.7; O2SAT 100
[2023-10-24 08:34] LABS: Appearance Urine Cloudy; Color Urine Yellow; Glucose Urine UA Negative (Negative); Leukocyte Esterase Urine Negative (Negative); Nitrite Urine Negative (Negative); Specific Gravity - Urine 1.025 (1.005-1.025); Urine Blood Negative (Negative); Urine Ketones Negative (Negative); Urine Protein Negative (Neg-Trace)
[2023-10-24 09:57] VITALS: BP 113/68; PULSE 78; RESP 17; TEMP 36.6; O2SAT 98
== END 2023-10-24 09:57 | disposition home or self-care (01) ==
PROVIDERS: Emergency Provider Emergency Medicine Emergency Medical Services; PCP Internal Medicine
DX: K21.9 Gastro-esophageal reflux disease without esophagitis (principal); R10.13 Epigastric pain
CPT/HCPCS: 36415; 80053; 81003; 83690; 84702; 85025; 99283; 99284